=== PATIENT | male | born 1955 ===

== ENCOUNTER 2017-02-21 07:38 | Day surgery (SDC) | payer MEDICAID ==
[2017-02-21 08:06] VITALS: BMI 28.5
[2017-02-21] MEDS ORDERED: Propofol 10 mg/ml Inj (20 ML) ONE (10:10)
[2017-02-21] MEDS ORDERED: Midazolam 2 MG/2 ML VIAL ONE (10:10)
[2017-02-21] MEDS ORDERED: Lactated Ringer's 1,000 ML IV ONE (10:16)
[2017-02-21 10:46] VITALS: TEMP 97.8
[2017-02-21 13:48] VITALS: BP 135/83; PULSE 54; RESP 19; O2SAT 99
== END 2017-02-21 11:35 | disposition home or self-care (01) ==
LOC: C.ENDO 07:38
PROVIDERS: ATTEND Internal Medicine Gastroenterology
DX: Z12.11 Encounter for screening for malignant neoplasm of colon (principal); K63.5 Polyp of colon; K57.90 Diverticulosis of intestine, part unspecified, without perforation or abscess without bleeding; K64.1 Second degree hemorrhoids
CPT/HCPCS: 45380; 88305; J2250; J2704; J7120